=== PATIENT | male | born 1995 | race Caucasian/White ===

== ENCOUNTER 2016-06-02 01:35 | Emergency (ER) | payer OTHER | END 2016-06-02 02:45 | disposition home or self-care (01) | LOC: ER 01:35 | DX: S01.511A Laceration without foreign body of lip, initial encounter (principal); M25.571 Pain in right ankle and joints of right foot; W01.10XA Fall on same level from slipping, tripping and stumbling with subsequent striking against unspecified object, initial encounter; Y92.019 Unspecified place in single-family (private) house as the place of occurrence of the external cause | CPT/HCPCS: 12011; 73610; 90471; 90715; 99070; 99283-25 ==